=== PATIENT | male | born 1955 | race Hispanic/Latino ===

== ENCOUNTER → 2018-05-18 | Outpatient (CLI) | payer OTHER ==
[~2018-05-18] MED LIST: ALPHA GALACTOSIDASE PO; ASPI-555 PO; BACL10TA PO; CITA10TA7 PO; DOCU-132 PO; DULO60CA63 PO; FENT-77 TD; GABA-326 PO; LACT10SO PO; LUBI24CA2 PO; METO10TA3 PO; PANT40TA25 PO; POLY500P30 MC; PRAV10TA39 PO; TRAZ-187 PO; TYL2 PO
== END | disposition home or self-care (01) ==
LOC: RAH 10:04
PROVIDERS: ATTEND Physical Medicine & Rehabilitation
DX: M47.895 Other spondylosis, thoracolumbar region (principal); M25.78 Osteophyte, vertebrae
CPT/HCPCS: 72072; 72100

== ENCOUNTER → 2020-05-16 | Outpatient (CLI) | payer OTHER ==
[~2020-05-16] MED LIST changes: -ASPI-555 PO; +ASPI-556 PO; -DULO60CA63 PO; +DULO60CA64 PO; -GABA-326 PO; +GABA800T9 PO; -PANT40TA25 PO; +PANT40TA54 PO
== END | disposition home or self-care (01) ==
LOC: RAH 09:48
PROVIDERS: ATTEND Anesthesiology Pain Medicine
DX: M47.816 Spondylosis without myelopathy or radiculopathy, lumbar region (principal); M47.812 Spondylosis without myelopathy or radiculopathy, cervical region; G89.4 Chronic pain syndrome
CPT/HCPCS: 72040; 72114; 72220

== ENCOUNTER → 2020-12-24 | Outpatient (CLI) | payer OTHER ==
[~2020-12-24] MED LIST changes: -LACT10SO PO; +LACT10SO5 PO
== END | disposition home or self-care (01) ==
LOC: RAH 10:37
PROVIDERS: ATTEND Internal Medicine Gastroenterology
DX: R10.13 Epigastric pain (principal); K31.84 Gastroparesis
CPT/HCPCS: 78264; A9541

== ENCOUNTER → 2022-06-17 | Outpatient (CLI) | payer OTHER, MEDICARE ==
[~2022-06-17] MED LIST changes: -CITA10TA7 PO; +CITA10TA89 PO; +LIDOCAINE HCL 4% LTA SOL 4 ML VIAL TP ONE
== END | disposition home or self-care (01) ==
LOC: WHH 09:04
PROVIDERS: ATTEND Family Medicine
DX: L89.524 Pressure ulcer of left ankle, stage 4 (principal); G82.50 Quadriplegia, unspecified; E78.5 Hyperlipidemia, unspecified; K21.9 Gastro-esophageal reflux disease without esophagitis; F41.9 Anxiety disorder, unspecified; Z90.49 Acquired absence of other specified parts of digestive tract; Z79.899 Other long term (current) drug therapy
CPT/HCPCS: 11042; A6248; A4450

== ENCOUNTER → 2022-07-01 | Outpatient (CLI) | payer OTHER, MEDICARE | END | disposition home or self-care (01) | LOC: WHH 10:07 | PROVIDERS: ATTEND Family Medicine | DX: L89.524 Pressure ulcer of left ankle, stage 4 (principal); G82.50 Quadriplegia, unspecified; E78.5 Hyperlipidemia, unspecified; K21.9 Gastro-esophageal reflux disease without esophagitis; F41.9 Anxiety disorder, unspecified; Z90.49 Acquired absence of other specified parts of digestive tract; Z79.899 Other long term (current) drug therapy | CPT/HCPCS: 11042 ==

== ENCOUNTER → 2022-07-22 | Outpatient (CLI) | payer OTHER, MEDICARE | END | disposition home or self-care (01) | LOC: WHH 09:59 | PROVIDERS: ATTEND Family Medicine | DX: L89.524 Pressure ulcer of left ankle, stage 4 (principal); G82.50 Quadriplegia, unspecified; E78.5 Hyperlipidemia, unspecified; K21.9 Gastro-esophageal reflux disease without esophagitis; F41.9 Anxiety disorder, unspecified; Z90.49 Acquired absence of other specified parts of digestive tract; Z79.899 Other long term (current) drug therapy | CPT/HCPCS: G0463 ==

== ENCOUNTER → 2022-08-12 | Outpatient (CLI) | payer OTHER, MEDICARE | END | disposition home or self-care (01) | LOC: WHH 09:08 | PROVIDERS: ATTEND Family Medicine | DX: L89.524 Pressure ulcer of left ankle, stage 4 (principal); G82.50 Quadriplegia, unspecified; E78.5 Hyperlipidemia, unspecified; K21.9 Gastro-esophageal reflux disease without esophagitis; F41.9 Anxiety disorder, unspecified; Z90.49 Acquired absence of other specified parts of digestive tract; Z79.899 Other long term (current) drug therapy | CPT/HCPCS: 11042; A4450 ==

== ENCOUNTER → 2022-08-26 | Outpatient (CLI) | payer OTHER, MEDICARE ==
[~2022-08-26] MED LIST changes: -LIDOCAINE HCL 4% LTA SOL 4 ML VIAL TP ONE
== END | disposition home or self-care (01) ==
LOC: WHH 09:12
PROVIDERS: ATTEND Family Medicine
DX: L89.524 Pressure ulcer of left ankle, stage 4 (principal); E78.5 Hyperlipidemia, unspecified; K21.9 Gastro-esophageal reflux disease without esophagitis; G82.50 Quadriplegia, unspecified; F41.9 Anxiety disorder, unspecified; Z90.49 Acquired absence of other specified parts of digestive tract; Z79.899 Other long term (current) drug therapy
CPT/HCPCS: 11042

== ENCOUNTER → 2022-09-09 | Outpatient (CLI) | payer OTHER, MEDICARE ==
[~2022-09-09] MED LIST changes: +LIDOCAINE HCL 4% LTA SOL 4 ML VIAL TP ONE
== END | disposition home or self-care (01) ==
LOC: WHH 10:18
PROVIDERS: ATTEND Family Medicine
DX: L89.524 Pressure ulcer of left ankle, stage 4 (principal); G82.50 Quadriplegia, unspecified; E78.5 Hyperlipidemia, unspecified; K21.9 Gastro-esophageal reflux disease without esophagitis; F41.9 Anxiety disorder, unspecified; Z90.49 Acquired absence of other specified parts of digestive tract; Z79.899 Other long term (current) drug therapy
CPT/HCPCS: 11042; A4450

== ENCOUNTER → 2022-09-20 | Outpatient (CLI) | payer OTHER, MEDICARE ==
[~2022-09-20] MED LIST changes: -LIDOCAINE HCL 4% LTA SOL 4 ML VIAL TP ONE
[2022-09-20 13:36] LABS: BASOPHILS % (AUTO) 0.4 % (0.0-5.0); EOSINOPHILS % (AUTO) 2.6 % (0.0-8.0); HEMATOCRIT 36.2 % (42-54); LYMPHOCYTES % (AUTO) 25.5 % (21.0-51.0); MEAN CORPUSCULAR HEMOGLOBIN 28.2 pg (27.0-33.0); MEAN CORPUSCULAR HGB CONC 33.1 g/dL (32.0-36.0); MONOCYTES % (AUTO) 4.8 % (3.0-13.0); NEUTROPHILS % (AUTO) 66.5 % (40.0-77.0); PLATELET COUNT (AUTO) 203 K/uL (130-400); RED BLOOD CELL COUNT(AUTO) 4.26 MIL/uL (4.50-6.20); RED CELL DISTRIBUTION WIDTH 12.2 % (11.0-15.5); WHITE BLOOD COUNT (AUTO) 4.6 K/uL (4.8-10.8)
[2022-09-20 13:42] LABS: INR 0.94 (0.85-1.15); PROTHROMBIN TIME 10.3 SEC (9.6-11.6)
[2022-09-20 13:43] LABS: PARTIAL THROMBOPLASTIN TIME 26.5 SEC (26.3-35.5)
[2022-09-20 13:53] LABS: ALBUMIN 3.2 g/dL (3.5-5.0); CREATININE 0.6 mg/dL (0.5-1.5); POTASSIUM 3.3 mmol/L (3.5-5.1); TOTAL PROTEIN, SERUM 6.4 g/dL (6.0-8.3)
== END | disposition home or self-care (01) ==
LOC: LAB 10:57
PROVIDERS: ATTEND Student in an Organized Health Care Education/Training Program
DX: I73.9 Peripheral vascular disease, unspecified (principal); M79.605 Pain in left leg; Z79.82 Long term (current) use of aspirin; Z79.02 Long term (current) use of antithrombotics/antiplatelets; Z79.899 Other long term (current) drug therapy
CPT/HCPCS: 36415; 80053; 85025; 85610; 85730

== ENCOUNTER → 2022-09-23 | Outpatient (CLI) | payer OTHER, MEDICARE | END | disposition home or self-care (01) | LOC: WHH 10:02 | PROVIDERS: ATTEND Family Medicine | DX: L89.524 Pressure ulcer of left ankle, stage 4 (principal); G82.50 Quadriplegia, unspecified; E78.5 Hyperlipidemia, unspecified; K21.9 Gastro-esophageal reflux disease without esophagitis; F41.9 Anxiety disorder, unspecified; Z90.49 Acquired absence of other specified parts of digestive tract; Z79.899 Other long term (current) drug therapy | CPT/HCPCS: G0463 ==

== ENCOUNTER → 2022-10-07 | Outpatient (CLI) | payer OTHER, MEDICARE | END | disposition home or self-care (01) | LOC: WHH 13:25 | PROVIDERS: ATTEND Family Medicine | DX: L89.524 Pressure ulcer of left ankle, stage 4 (principal); G82.50 Quadriplegia, unspecified; E78.5 Hyperlipidemia, unspecified; K21.9 Gastro-esophageal reflux disease without esophagitis; F41.9 Anxiety disorder, unspecified; Z90.49 Acquired absence of other specified parts of digestive tract; Z79.899 Other long term (current) drug therapy | CPT/HCPCS: G0463 ==

== ENCOUNTER → 2022-10-19 | Outpatient (CLI) | payer OTHER, MEDICARE | END | disposition home or self-care (01) | LOC: WHH 10:21 | PROVIDERS: ATTEND Nurse Practitioner Family | DX: L89.524 Pressure ulcer of left ankle, stage 4 (principal); G82.50 Quadriplegia, unspecified; E78.5 Hyperlipidemia, unspecified; K21.9 Gastro-esophageal reflux disease without esophagitis; F41.9 Anxiety disorder, unspecified; Z90.49 Acquired absence of other specified parts of digestive tract; Z79.899 Other long term (current) drug therapy | CPT/HCPCS: G0463; A6250 ==

== ENCOUNTER → 2023-02-23 | Outpatient (CLI) | payer OTHER, MEDICARE | END | disposition home or self-care (01) | LOC: RAH 13:39 | PROVIDERS: ATTEND Physical Medicine & Rehabilitation | DX: M47.812 Spondylosis without myelopathy or radiculopathy, cervical region (principal); M25.78 Osteophyte, vertebrae; M43.22 Fusion of spine, cervical region; M54.2 Cervicalgia | CPT/HCPCS: 72125 ==

== ENCOUNTER → 2024-03-02 | Outpatient (CLI) | payer OTHER, MEDICARE ==
[~2024-03-02] MED LIST changes: +IOHEXOL-350 75 ML VIAL IV ONE
== END | disposition home or self-care (01) ==
LOC: RAH 08:30
PROVIDERS: ATTEND Student in an Organized Health Care Education/Training Program
DX: I70.0 Atherosclerosis of aorta (principal); I73.9 Peripheral vascular disease, unspecified; N32.89 Other specified disorders of bladder; M47.815 Spondylosis without myelopathy or radiculopathy, thoracolumbar region
CPT/HCPCS: 75635; Q9967

== ENCOUNTER → 2024-12-14 | Outpatient (CLI) | payer OTHER, MEDICAID ==
[~2024-12-14] MED LIST changes: +GABA-1555 PO; -GABA800T9 PO; -IOHEXOL-350 75 ML VIAL IV ONE; +LACT-441 PO; -LACT10SO5 PO; -LUBI24CA2 PO; +LUBI24CA40 PO; +PRAV10TA37 PO; -PRAV10TA39 PO
--- NOTE | 2024-12-14 13:27 | HMCIMG ---
Exam Type: ABD 1VW Clinical Information: CHRONIC IDIOPATHIC CONSTIPATION Comparison: None Findings: Abdomen demonstrates no evidence of pathologic calcification or soft tissue mass. There are no radiopacities to suggest calculous disease. The intestinal gas pattern is within normal limits without evidence of dilatation to suggest obstruction or adynamic ileus. There is osteopenia of the bony structures and there are severe degenerative changes of the right hip. Spinal stimulator device overlies the right flank. IMPRESSION: Normal bowel gas pattern.
== END | disposition home or self-care (01) ==
LOC: RAH 12:32
PROVIDERS: ATTEND Physician Assistant Medical
DX: K59.04 Chronic idiopathic constipation (principal); M16.11 Unilateral primary osteoarthritis, right hip; M85.88 Other specified disorders of bone density and structure, other site
CPT/HCPCS: 74018